=== PATIENT | female | born 1945 | race African-American/Black ===

== ENCOUNTER 2021-03-03 16:54 | Observation (INO) ==
[2021-03-03] MEDS ORDERED: ONDANSETRON 4 MG/2 ML VIAL IV STA (18:35)
[2021-03-03] MEDS ORDERED: NITROGLYCERIN 2% OINT 1 INCH/GM PACK TOP STA (18:35)
[2021-03-03] MEDS ORDERED: ASPIRIN 325 MG TABLET PO STA (18:35)
[2021-03-03 18:54] LABS: Basophils % 0.3 % (0.0-0.8); Eosinophils # 0.2 10*3/uL (0.0-0.87); Eosinophils % 3.3 % (0.00-10.9); Hematocrit 40.2 VOL% (35.7-47.0); Hemoglobin 13.2 GM/DL (12.0-16.0); Immature Granulocytes % 0.2 %; Immature Granulocytes Absolute 0.01 #; Lymphocytes # 3.1 10*3/uL (1.4-4.0); Lymphocytes % 51.8 % (21.3-54.2); Mean Corpuscular HGB Conc 32.8 GM/DL (32-36); Mean Corpuscular Volume 93.3 FL (87-102); Mean Platelet Volume 12.3 FL (9.6-12.0); Monocytes % 7.6 % (1.7-12.7); Neutrophils % 36.8 % (38.7-73.9); Platelet Count 214 T/CUMM (130-400); Red Blood Count 4.31 MC/CUMM (3.8-5.5); Red Cell Distribution Width 14.2 % (9.3-17.3)
[2021-03-03 19:01] LABS: Alanine Aminotransferase 25 U/L (13-56); Albumin 3.4 G/DL (3.4-5.0); Alkaline Phosphatase 93 U/L (45-117); Aspartate Amino Transferase 19 U/L (0-37); Bilirubin,Total < 0.39 MG/DL (0.20-1.00); Blood Urea Nitrogen 17 MG/DL (7-18); Calcium 10.2 MG/DL (8.5-10.1); Carbon Dioxide 28 MMOL/L (21-32); Estimated Glom Filtration Rate 78 ML/MIN; Glucose 85 MG/DL (74-106); Osmolality,Calculated 281.3 MOS/KG (273-304); Potassium 4.1 MMOL/L (3.5-5.1); Sodium 141 MMOL/L (136-145); Total Protein 7.1 G/DL (6.4-8.2)
[2021-03-03] MEDS ORDERED: ENOXAPARIN 100 MG/ML SYRINGE SUBCUT STA (19:38)
[2021-03-03] MEDS ORDERED: hydrALAZINE 20 MG/1 ML VIAL IV PRN (19:50)
[2021-03-03] MEDS ORDERED: DEXTROSE 50% 25 GM/50 ML VIAL IV PRN (19:50)
[2021-03-03] MEDS ORDERED: ONDANSETRON 4 MG/2 ML VIAL IV PRN (19:50)
[2021-03-03] MEDS ORDERED: GLUCAGON 1 MG VIAL IM PRN (19:50)
[2021-03-03 20:35] LABS: Barbiturates Screen,Urine Negative (Negative); Benzodiazepines Screen,Urine Negative (Negative); Cannabinoid Screen,Urine Negative (Negative); Opiate Screen,Urine Negative (Negative); Phencyclidine Screen,Urine Negative (Negative)
[2021-03-03 21:44] LABS: Eosinophils 4 % (0-10); Lymphocytes 69 % (20-55); Platelet Estimate Normal; Segmented Neutrophils 25 % (50-85); Total Cells Counted 100
[2021-03-03 22:14] LABS: Bacteria,Urine Occasional /HPF (Few); Bilirubin,Urine Negative (Negative); Blood, Urine Negative (Negative); Glucose,Urine (UA) Negative (Negative); Hyaline Casts,Urine 1 /LPF (0-3); Ketones,Urine Negative (Negative); Mucus,Urine Occasional /LPF (Occasional); Nitrite,Urine Negative (Negative); Protein,Urine 30 MG/DL; RBC,Urine 3 /HPF (0-4); Squamous Epithelial Cell,Urine Occasional /HPF (0-10); Urine Appearance CLEAR (Clear); Urine Color Yellow (Yellow); Urine Specific Gravity 1.016 (1.001-1.035); Urine Urobilinogen < 2.0 EU/DL (0.2-1.0)
[2021-03-04] MEDS ORDERED: INFLUENZA VIRUS VACCINE 0.5 ML SYRINGE IM ONE (00:14)
[2021-03-04] MEDS: INSULIN LISPRO 100 UNIT/ML SUBCUT SCH ×5 (01:07→20:17)
[2021-03-04 01:47] LABS: Basophils % 0.3 % (0.0-0.8); Eosinophils # 0.2 10*3/uL (0.0-0.87); Eosinophils % 3.4 % (0.00-10.9); Hematocrit 38.4 VOL% (35.7-47.0); Hemoglobin 13.2 GM/DL (12.0-16.0); Immature Granulocytes % 0.2 %; Immature Granulocytes Absolute 0.01 #; Lymphocytes # 3.4 10*3/uL (1.4-4.0); Lymphocytes % 56.6 % (21.3-54.2); Mean Corpuscular HGB Conc 34.4 GM/DL (32-36); Mean Corpuscular Volume 91.9 FL (87-102); Mean Platelet Volume 11.2 FL (9.6-12.0); Monocytes % 8.3 % (1.7-12.7); Neutrophils % 31.2 % (38.7-73.9); Platelet Count 221 T/CUMM (130-400); Red Blood Count 4.18 MC/CUMM (3.8-5.5); Red Cell Distribution Width 14.1 % (9.3-17.3); White Blood Count 5.9 T/CUMM (4-12)
[2021-03-04 02:11] LABS: Calcium 9.7 MG/DL (8.5-10.1); Osmolality,Calculated 283.3 MOS/KG (273-304); Potassium 3.5 MMOL/L (3.5-5.1); Risk Ratio 2.89; Thyroid Stimulating Hormone 0.87 uIU/ml (0.358-3.74); VLDL Cholesterol 18.6 MG/DL
[2021-03-04 02:16] LABS: Lymphocytes 55 % (20-55); Microcytosis Slight; Platelet Estimate Normal; Segmented Neutrophils 38 % (50-85); Total Cells Counted 100
[2021-03-04 02:18] LABS: Polychromasia Slight; Target Cells Few
[2021-03-04] MEDS: PANTOPRAZOLE 40 MG TABLET PO SCH (08:50)
[2021-03-04] MEDS ORDERED: POTASSIUM CHLORIDE RIDER 10 MEQ/100 ML PREMIX IV PRN (10:26)
[2021-03-04] MEDS ORDERED: DIAZEPAM 5 MG TABLET PO ONE (10:26)
[2021-03-04] MEDS ORDERED: DIAZEPAM 5 MG TABLET ONE (10:26)
[2021-03-04] MEDS ORDERED: diphenhydrAMINE CAP 25 MG CAPSULE ONE (10:26)
[2021-03-04] MEDS ORDERED: diphenhydrAMINE CAP 25 MG CAPSULE PO ONE (10:26)
[2021-03-04] MEDS ORDERED: MAGNESIUM SULF RIDER 2 GM/50 ML PREMIX IV PRN (10:26)
[2021-03-04] MEDS: SODIUM CHLORIDE 0.9% 1,000 ML IV SCH ×2 (10:29→18:33)
[2021-03-04] MEDS: ASPIRIN EC 325 MG TABLET PO SCH (10:29)
[2021-03-04] MEDS ORDERED: MIDAZOLAM 2 MG/2 ML VIAL ONE (10:46)
[2021-03-04] MEDS ORDERED: fentaNYL 100 MCG/2 ML VIAL ONE (10:47)
[2021-03-04] MEDS ORDERED: NITROGLYCERIN SL 0.4 MG TABLET SL PRN (11:01)
[2021-03-04] MEDS ORDERED: LIDOCAINE 1% 20 ML VIAL ONE (11:40)
[2021-03-04] MEDS ORDERED: HEPARIN/NACL 0.9% 2 UNITS/ML 2,000 UNIT/1,000 ML BAG IV ONE (11:40)
[2021-03-04] MEDS: ACETAMINOPHEN 325 MG TABLET PO PRN (13:44)
[2021-03-04] MEDS ORDERED: ENOXAPARIN 40 MG/0.4 ML SYRINGE SUBCUT SCH (20:00)
[2021-03-05] MEDS: SODIUM CHLORIDE 0.9% 1,000 ML IV SCH ×2 (00:25→01:43)
[2021-03-05 03:53] LABS: Basophils % 0.2 % (0.0-0.8); Eosinophils # 0.2 10*3/uL (0.0-0.87); Eosinophils % 3.7 % (0.00-10.9); Hematocrit 37.6 VOL% (35.7-47.0); Hemoglobin 12.2 GM/DL (12.0-16.0); Lymphocytes % 55.2 % (21.3-54.2); Mean Corpuscular HGB Conc 32.4 GM/DL (32-36); Mean Corpuscular Volume 93.8 FL (87-102); Mean Platelet Volume 11.8 FL (9.6-12.0); Monocytes % 8.4 % (1.7-12.7); Neutrophils % 32.5 % (38.7-73.9); Platelet Count 201 T/CUMM (130-400); Red Blood Count 4.01 MC/CUMM (3.8-5.5); Red Cell Distribution Width 14.2 % (9.3-17.3); White Blood Count 5.4 T/CUMM (4-12)
[2021-03-05 04:12] LABS: Calcium 9.5 MG/DL (8.5-10.1); Osmolality,Calculated 287.1 MOS/KG (273-304); Potassium 3.9 MMOL/L (3.5-5.1)
[2021-03-05 04:25] LABS: Eosinophils 3 % (0-10); Hypochromasia 1+; Lymphocytes 64 % (20-55); Microcytosis 1+; Platelet Estimate Adequate; Segmented Neutrophils 30 % (50-85); Total Cells Counted 100
[2021-03-05 04:26] LABS: Atypical Lymphocytes Few
[2021-03-05] MEDS: ACETAMINOPHEN 325 MG TABLET PO PRN (06:55)
[2021-03-05] MEDS ORDERED: amLODIPine 10 MG TABLET PO SCH (09:00)
[2021-03-05] MEDS ORDERED: LOSARTAN 50 MG TABLET PO SCH (09:00)
[2021-03-05] MEDS: PANTOPRAZOLE 40 MG TABLET PO SCH (09:11)
[2021-03-05] MEDS: ASPIRIN EC 325 MG TABLET PO SCH (09:11)
[2021-03-05] MEDS: INSULIN LISPRO 100 UNIT/ML SUBCUT SCH ×2 (09:42→13:15)
[2021-03-05 11:54] VITALS: BP 166/66
[2021-03-05] MEDS ORDERED: ATORVASTATIN 80 MG TABLET PO SCH (21:00)
== END 2021-03-05 12:45 | disposition home or self-care (01) ==
LOC: EDBD → EDUNIT# → N.ED 16:54 → N.EDINP 16:54 → N.TELEN 23:00
PROVIDERS: ADMIT Internal Medicine; ATTEND Internal Medicine
PROC: CLCCHCL (ICD-10-PCS; 2021-03-04 11:15)